=== PATIENT | female | born 1980 | race Caucasian/White ===

== ENCOUNTER 2017-08-05 21:27 | Emergency (ER) | payer SELFPAY ==
[~2017-08-05] VITALS: Ht 162.6 cm; Wt 86.2 kg
[~2017-08-05 21:27] MED LIST: FERROUS SULFAT325 M2 PO; MEDROXYPROGEST2.5 MG PO; SIMVASTATIN10 M1 PO
[2017-08-05 21:29] VITALS: BP 146/96; Ht 162.6 cm; Wt 86.2 kg
== END 2017-08-05 23:32 | disposition left against medical advice (07) ==
LOC: ED 21:27
DX: Z53.21 Procedure and treatment not carried out due to patient leaving prior to being seen by health care provider (principal)